=== PATIENT | male | born 1985 | race Caucasian/White ===

== ENCOUNTER 2021-02-21 12:13 | Day surgery (SDC) | payer OTHER ==
[2021-02-20 11:25] VITALS: BMI 27.2
--- NOTE | 2021-02-21 08:24 | P.HPOR ---
History of Present Illness H&P Date: 02/19/21 Chief Complaint: Lt clavicle Fx .T:Title: [facility] Date of :[birth year] R14 Allergies: Age: 35 year Height: 6'5" Weight: 230 lbs BMI: 27.27 kg/m2 Occupation: Unemployed VAS: 4 CHIEF COMPLAINT: Left clavicle, right ankle TREATMENTS: Physical Therapy: No Injections: No Brace: Yes How long was brace worn? Since initial injury on 02/10/2021 (sling) Did it help? yes Home Spine Exercise Program: No Supplements guide: No Health Maintenance Program: No HISTORY: X-Rays: brought xrays from outside facility which were reviewed Trauma or injury: yes , slipped and fell during softball game on 02/10/2021 Work-related: No Location: diffuse Hand dominance: right Activity Modifications: yes DOI: 02/10/2021 DOS: None SUBJECTIVE: Today Mr. Hartman presents for an evaluation of his left clavicle and right ankle. To review, the patient sustained a fall on 02/10/2021, twisting the right ankle and falling on the left shoulder. Immediately after this he presented to the [facility] ER where he was given a shoulder sling and referred here. With this he felt immediate, sharp pain about both areas of concern. After the initial injury he notes that the right ankle pain has waned considerably. He notes that he has been fully weightbearing, regarding the right ankle, since the fall. With this he notes some increase in pain over time with standing or ambulating for extended periods of time. In addition to the right ankle pain he does have moderate swelling about the ankle diffusely, which has waned mildly since the initial injury. This is well controlled with rest and ice. Regarding the left clavicle, he notes that this has been his primary concern since the initial fall. He notes mild tenderness about the left clavicle area with increases with any movement of the left shoulder. Along with the pain he does report mild swelling about the anterior side of the shoulder. Due to this he has been NWB regarding the left upper extremity. He presents to the office wearing the left shoulder sling given to him in the [facility] ER. Patient is taking Ibuprofen PRN for pain management with good effect. Otherwise, he denies any other issues and presents to the office without the use of any ambulatory aides. The patient's past medical history; past surgical history; family history; medicines; allergies and social history have been reviewed and are as stated elsewhere in the chart. 14 points review of systems completed and as stated in HPI, all other systems reviewed are negative. Social History: Reviewed, see appropriate section of the chart for details. P3 Social History: .CE:Clinical Elements:Clinical Elements: Smoking: never a smoker P3 .CE:Clinical Elements:Clinical Elements: Alcohol: none P3 P3 Family History: Reviewed, see appropriate section of the chart for details. P2 Family History: Mother: lung cancer. P2 Father: alive & well. P2 Sibling(s): alive & well. P2 P2 Past Medical History: Reviewed, see appropriate section of the chart for details. P1 PAST MEDICAL HISTORY: P1 P1 THYROID (condition unspecified) Surgical / Procedural History: none P1 P1 Current Medications: Rx: levothyroxine Ref: 0 P1 PHYSICAL EXAM: Patient is alert and oriented 3 appears well-nourished well-hydrated is in no acute distress. They do not appear septic. There is TTP over the lt clavicle with palapble bony fragment and skin tenting over this area. There is no breakthrough. There is ttp about the trapezial region as well. No ttp of the ankle currently. Lower extremities with 5 out of 5 strength in all major muscle groups. Moderate edema diffusely about the right ankle with mild ecchymosis. Limited ROM secondary to pain and swelling. Good sensation about the distal extremities in the right foot. Patient is fully weightbearing and not using any splints/casts. Upper extremities show 5/5 strength in all major muscle groups. Patient presents to the office with the use of a shoulder sling and NWB. Limited ROM secondary to pain. Good sensation in the distal extremities of the left upper extremity and left shoulder. Limited ROM and strength of Lt shoulder secondary to fracture There is FROM that is painless of the b/l UE and LE in all major joints. Limited ROM of Lt shoulder due to fracture. They are intact to light touch sensation in L2 to S1 nerve distribution as well as the C5-T1 distribution DTR 2/4 all upper and lower extremities Patient has palpable dorsalis pedis was posterior tibial pulses. Palpable Rad Ulnar pulses b/l Compartments are soft and compressible. Patient shows a negative Homans Cranial nerves II through XII are grossly intact. RADIOGRAPHS: XRay taken on 02/1821 of left clavicle was reviewed by Dr. Zamarripa and indicates: - Comminuted displaced with segmental fracture 2 cm shortening and 75-100% vertical displacement of mid to distal 1/3 shaft fracture. There are bony fragments that are rotated 90 deg inferiorly. There is no CC or AC separation noted. GH joint visualized is in tact no fractures. XRay taken on 02/1821 of right ankle was reviewed by Dr. Zamarripa and indicates: - No fracture, no malalignment, no talar shift. No bony abnormalities. ASSESSMENT: 1. Left clavicle fracture, closed, displaced, shortened, comminuted with skin tenting 2. Grade 1 right ankle sprain PLAN: All options were reviewed today, we decided the best course of action would be: 1. Based on his clinical findings and the nature of the fracture we did discuss surgical intervention in the form of a left clavicle ORIF. All questions and c oncerns were address and the patient was understanding. We will plan on scheduling this. Wear cast/splint as needed/when up and about, do not sleep or shower in it. Ambulate daily Take pain medications medications as needed and as directed Ice and rest for pain and swelling control. Orthopedic Surgery Risk Review Jayesh Hartman is a 35-year-old [id number] male presenting for evaluation of sudden onset left shoulder and clavicle pain, after a baseball injury where he fell onto his left shoulder. It was my pleasure to have seen and examined Jayesh Hartman. In our visit today we have had a chance to go over subjective complaints, physical examination findings and treatments including the natural course history without intervention and various interventional options. His imaging demonstrates left clavicle fracture comminuted shortened 2 cm with 75-100% displacement. On physical exam,Jayesh Hartman.demonstrates pain with motion of pain with movement of his left shoulder grinding and popping secondary to the fracture, which is NV intact at this time. I have explained to the patient that this fracture needs stabilization. Based on the patients imaging, physical exam, and the rapid progression and disabling nature of her symptoms, at this time I recommend surgery in the form or a: Left clavicle ORIF I discussed the risk and benefits of this procedure at length with Jayesh Gardner And his significant other. Questions were invited and answered, and the patient wishes to proceed as outlined below. Currently, I am recommendin. Left clavicle ORIF 2. Review of surgical risks and benefits as well as an educational packet on the proposed surgical procedure. Risks: All surgical procedures come with inherent risks, including those related to positioning, anesthesia, intraoperative findings, and postoperative complications. It is important to understand that surgery does not come with any guarantee of a successful outcome as complications and adverse events are always possible. The patient was given a handout discussing the surgical procedure and risks associated with the intervention, both of which were discussed with the patient. These risks include but are not limited to the following: - Experiencing same, different or even worse symptoms compared to before surgery. - Requiring further surgery or other forms of treatment presently or at some time in the future . - On an extreme but fortunately relatively rare basis severe complication such as blindness, stroke, heart attack, temporary and/or permanent nerve injury, paralysis, coma, or may occur, sometimes without known explanation. - Surgical complications may include but are not limited to risk of infection, fluid accumulation in the surgical dissection site, including a seroma or hematoma, that requires additional surgery, wound drainage, bleeding, new numbness or weakness, vision changes/loss, spinal fluid leakage, non-healing and/or infected incision, headaches, difficulty or inability to swallow, hoarseness, hemopneumothorax, pneumothorax, injury to nerves, spinal cord, blood vessels, lymphatics or other vital organs (i.e., bowel injury, injury to the great vessels); heterotopic bone formation; complications related to the hardware such as screws, rods, including misplaced hardware, device failure, hardware fracture/breakage, or hardware loosening; retained surgical instrumentations or devices and the need for further surgery. - Medical risks of the planned surgery include but are not limited to generalized Infections to the whole body or local areas outside of the surgical site (sepsis), heart attack, bleeding, anaphylaxis, meningitis, seizure, epilepsy, hearing loss, burn paodaca, laceration of the head or other areas of the body, bruising, hypersensitivity of the skin, bladder over distension; allergic reaction; shoulder injury related to positioning; fat, blood and air clots to other areas of the body like heart, lungs, brain; failure of internal organs such as lungs, kidneys, liver and excessive bleeding. If blood transfusions are necessary, note that transfusions may cause intolerance reactions such as anaphylaxis or other complex reactions. Despite best efforts, the results of surgery might not heal in terms of bone, soft tissues such as skin, fascia, ligaments, and joints. [facility] is an educational center that serves as a training facility for physician assistants, nurses, orthopedic residents and fellows. Residents are physicians who are completing their surgical intensive training following medical school. They assist in the operating room with direct supervision of the attending surgeons. Kinsman are surgeons who have completed their training and eligible for board certification. They have opted for an elective year of more specialized training in their field. They assist in the operating room under the supervision of the attending surgeons. Physician assistants are medically trained surgical providers who function in the outpatient, inpatient, and operating room setting under the direct supervision of the attending surgeon. [facility] has multiple operating rooms with single and overlapping rooms running daily. They currently function under the required guidelines as produced by the [facility] Finance Committee with regards to the overlapping rooms and will continue to comply with changes to this policy as they occur. The requirements include and are complied with as follows: (1) the critical portions of the overlapping rooms will not occur at the same time, (2) the attending physician will be physically present during the critical portions of the procedure and immediately available during the entire case, and (3) a back-up attending is designated should the primary attending not be immediately available. The patient has had a chance to review all the listed information, has been given print outs detailing this information, and has had all his/her questions answered to their satisfaction. It was my pleasure to have seen and examined Jayesh Gardner. In our visit today we have had a chance to go over my understanding of our patient's current condition, the natural course history without intervention and various interventional options. Questions were invited and answered, and the patient wishes to proceed as outlined above. I have seen and examined the patient for 25 minutes and we have spent more than 50% of the time in repeat and detailed counseling about the patient's condition, its natural course history with out and as much as can be predicted with surgery and re-review of various surgical treatment options. In conclusion, Jayesh Gardner And his significant other requested we proceed with the above suggested surgery and are willing to accept risks and limitations of the suggested surgery as nature of the disease process and our best attempts at treatment for the condition. Thank you again for allowing us to be part of your patient's care. Please don't hesitate to contact me if you have any further questions. Signed and authenticated by: Aj Ortez [facility] [address] [place] [address] Past Medical History Past Medical History: Thyroid Disorder History of Any Multi-Drug Resistant Organisms: None Reported Past Surgical History: No Surgical Hx Reported Past Anesthesia/Blood Transfusion Reactions: No Reported Reaction Additional Past Anesthesia/Blood Transfusion Reaction / Comment(s): Has never had general anesthesia. Past Psychological History: Anxiety Smoking Status: Never smoker Past Alcohol Use History: Rare Past Drug Use History: None Reported - Past Family History Mother Family Medical History: Cancer, Deep Vein Thrombosis (DVT) Additional Family Medical History / Comment(s): Lung Cancer. Medications and Allergies Home Medications Medication Instructions Recorded Confirmed Type Cholecalciferol [Vitamin D3 (25 25 mcg PO DAILY 02/20/21 02/20/21 History Mcg = 1000 Iu)] Levothyroxine Sodium 25 mcg PO QAM 02/20/21 02/20/21 History Allergies Allergy/AdvReac Type Severity Reaction Status Date / Time No Known Allergies Allergy Verified 02/20/21 11:32 Physical Examination Osteopathic Statement: *. No significant issues noted on an osteopathic structural exam other than those noted in the History and Physical/Consult.
[~2021-02-21 12:13] MED LIST: DEXAMETHASONE SOD PHOSPHATE 4 MG/ML 1 ML VIAL IV ONE; HYDROmorphone 0.5 MG/0.5 ML SYRINGE IVP PRN; LACTATED RINGERS 1,000 ML IV SCH; LIDOCAINE 1% (10MG/ML) FOR IV START INTRADERMA PRN; ONDANSETRON 4 MG/2 ML VIAL IVP ONE; SCOPOLAMINE 1.5MG/72HR PATCH TRANSDERM ONE
[2021-02-21] MEDS ORDERED: ONDANSETRON 4 MG/2 ML VIAL ONE ×3 (13:00→22:32)
[2021-02-21 13:24] LABS: Basophils # (A) 0.1 k/uL (0-0.2); Basophils % (A) 1 %; Eosinophils # (A) 0.3 k/uL (0-0.7); Eosinophils % (A) 3 %; HCT 48.6 % (39.0-53.0); HGB 16.9 gm/dL (13.0-17.5); Lymphocytes # (A) 2.5 k/uL (1.0-4.8); Lymphocytes % (A) 22 %; MCH 31.6 pg (25.0-35.0); MCHC 34.8 g/dL (31.0-37.0); MCV 90.8 fL (80.0-100.0); Mean Platelet Volume 7.6; Monocytes # (A) 0.7 k/uL (0-1.0); Monocytes % (A) 6 %; Neutrophils # (A) 7.5 k/uL (1.3-7.7); Neutrophils % (A) 67 %; Platelet Count 292 k/uL (150-450); RBC 5.35 m/uL (4.30-5.90); RDW 12.7 % (11.5-15.5); WBC 11.2 k/uL (3.8-10.6)
[2021-02-21 13:32] LABS: ALT 19 U/L (4-49); AST 24 U/L (17-59); African American GFR (CKD) >90 (>60 ml/min/1.73 sqM); Albumin 5.2 g/dL (3.5-5.0); Alkaline Phosphatase 70 U/L (38-126); Anion Gap 13 mmol/L; Blood Urea Nitrogen 15 mg/dL (9-20); Calcium 10.5 mg/dL (8.4-10.2); Carbon Dioxide 24 mmol/L (22-30); Chloride 103 mmol/L (98-107); Glucose 103 mg/dL (74-99); Non-African American GFR(CKD) >90 (>60 ml/min/1.73 sqM); Potassium 4.2 mmol/L (3.5-5.1); Sodium 140 mmol/L (137-145); Total Bilirubin 0.8 mg/dL (0.2-1.3); Total Protein 8.8 g/dL (6.3-8.2)
[2021-02-21] MEDS ORDERED: MIDAZOLAM 2 MG/2 ML VIAL IVP ONE ×2 (13:35→13:50)
--- NOTE | 2021-02-21 14:12 | P.ANPRN ---
Procedure Note - Anesthesia - Nerve Block Performed Left Interscalene Single Time Out Performed: Yes Date of Procedure: 02/21/21 Procedure Start Time: 13:57 Procedure Stop Time: 14:04 Location of Patient: PreOp Indication: Acute Post-Operative Pain, Requested by Surgeon Sedation Type: Sedate with meaningful contact maintained Preparation: Sterile Prep, Sterile Dressing Position: Sitting Catheter: None Needle Types: On-Q Needle Gauge: 20 Ultrasound used to visualize needle placement: Yes Ultrasound used to observe medication spread: Yes Injectate: 0.5% Ropivacaine (see comment for volume) (20 ml) Blood Aspirated: No Pain Paresthesia on Injection Noted: No Resistance on Injection: Normal Image Stored and Saved: Yes Events: Uneventful and Well Tolerated Left Other (see comment) Single Time Out Performed: Yes (Superficial cervical plexus block) Date of Procedure: 02/21/21 Procedure Start Time: 13:50 Procedure Stop Time: 13:55 Location of Patient: PreOp Indication: Acute Post-Operative Pain, Requested by Surgeon Sedation Type: Sedate with meaningful contact maintained Preparation: Sterile Prep, Sterile Dressing Position: Supine Catheter: None Needle Types: Pajunk Needle Gauge: 20 Ultrasound used to visualize needle placement: Yes Ultrasound used to observe medication spread: Yes Injectate: 0.5% Ropivacaine (see comment for volume) (20 ml) Blood Aspirated: No Pain Paresthesia on Injection Noted: No Resistance on Injection: Normal Image Stored and Saved: Yes Events: Uneventful and Well Tolerated
[2021-02-21] MEDS ORDERED: SUCCINYLCHOLINE CHLORIDE 100 MG/5 ML SYR IV ONE (16:18)
[2021-02-21] MEDS ORDERED: LIDOCAINE 1% INJ 10MG/ML (20 ML MDV) ONE (16:18)
[2021-02-21] MEDS ORDERED: fentaNYL (PF) 50 MCG/ML 2 ML AMP ONE (16:18)
[2021-02-21] MEDS ORDERED: HYDROmorphone (PF) 1 MG/ML ONE (16:18)
[2021-02-21] MEDS ORDERED: GLYCOPYRROLATE 0.2 MG/ML 2 ML VIAL ONE (16:18)
[2021-02-21] MEDS ORDERED: MIDAZOLAM 2 MG/2 ML VIAL ONE (16:18)
[2021-02-21] MEDS ORDERED: ROPIVACAINE 5 MG/ML 30 ML VIAL ONE (16:18)
[2021-02-21] MEDS ORDERED: NEOSTIGMINE 1 MG/ML 10 ML VIAL ONE (16:18)
[2021-02-21] MEDS ORDERED: ROCURONIUM 10 MG/ML (5 ML VIAL) IV ONE (16:18)
[2021-02-21] MEDS ORDERED: PROPOFOL 10 MG/ML 20 ML VIAL IV ONE (16:18)
[2021-02-21] MEDS ORDERED: LACTATED RINGERS 1,000 ML IV ONE (18:07)
--- NOTE | 2021-02-21 19:17 | P.PN ---
Progress Note - Text Progress Note Date: 02/21/21 Brief Post Op: Surgeon: Rafat Assist: Boris Pre op dx; left clavicle fracture shortened comminuted displaced Post op dx: Same Procedure: Left clavicle ORIF Anesthesia: GETA EBL: 25 Fluids: 700 UO: None Dispo: Stable to PACU Post op Plan: Nonweightbearing left upper extremity in sling Encourage ambulation IS 10x/hr Teds/SCDs Pain control DC home when stable
--- NOTE | 2021-02-21 19:32 | P.OP ---
Date of Procedure: 02/21/21 Preoperative Diagnosis: 1. Lt clavicle fracture displaced, comminuted, shortened with skin tenting 2. s/p baseball injury Postoperative Diagnosis: 1. Lt clavicle fracture displaced, comminuted, shortened with skin tenting 2. s/p baseball injury Procedure(s) Performed: 1. Open treatment clavicle fracture Lt with internal fixation [68320] 2. Partial Excision bone clavicle [50669] 3. Interpretation of intraoperative flouroscopic images <1 hr [64023] Implants: S&N 3.5 LCP plate DBM Anesthesia: GETA Surgeon: Aj Douglass Engraved Roller Inspector #1: James Mercado (Was present and necessary for the whole case due to complexity of the case) Estimated Blood Loss (ml): 25 IV fluids (ml): 700 Urine output (ml): 0 Pathology: none sent Condition: stable Disposition: PACU Indications for Procedure: 35 yo RHD male presented to the office after an injury at softball. He tripped and fell on a base and fell on his left side. He had ankle pain and shoulder pain. He came to ED for eval which showed a Lt comminuted clavicle fracture and he presented to the office for follow up. He complained of exquisite pain in the left shoulder and left clavicle region with the sensation of clicking and shifting of his clavicle. He is very active and uses his arms a lot. He denies any numbness or tingling there is no other changes. Discussed different options for him surgical versus nonsurgical. We discussed all the options risks benefits and outcomes of the procedure. After weighing his risks benefits and the different options the patient due to his activity level the displacement comminution and shortening of the clavicle fracture opted for surgical treatment. Description of Procedure: The patient was seen and examined in the preoperative area. All preoperative protocols were followed. Informed consent was obtained risks and benefits of the procedure were discussed at length. Risks including bleeding infection damage to the surrounding tissue and risk of reoperation were discussed with the patient. Risk of anesthesia up to and including was a discussed with the patient. These are outlined in the risk reviewed. They were willing to accept these risks and all of the risks of surgery. The patient was given a weight- based dose of antibiotics in the form of 2 g Ancef IVPB. The patient was seen and evaluated by the anesthesia team who deemed them fit for surgery. The site was marked, the patient was willing to proceed with the procedure. The patient was transferred to the operative suite by the Department of anesthesia. There were then drifted off to sleep by the department of anesthesia and GETA anesthesia was used. Once adequate anesthesia had been obtained the patient was carefully transferred to the operative bed. All bony prominences were padded accordingly. SCDs were placed on the nonoperative lower extremities. Arms were well padded. The patient was placed on a flat Jhonatan table supine with the head of the bed elevated. A bump was placed under his left shoulder. He was secured to the table safety straps. All bony prominences were padded accordingly and a pillow was placed under his knees. 10:15 0 placed around the operative field. Preoperative briefing was done with the operative team and everyone was ready for the procedure to start. The patients left arm was then prepped and draped in the normal sterile fashion. Timeout was then performed and all parties in agreement with the procedure to be performed. Localization was performed with fluoroscopic imaging. Once this was accomplished a transverse incision was made over the supraclavicular region. Blunt dissection taken down to the clavipectoral fascia which was split in line with the incision. We then identified the periosteum and this was opened. We then used a wooden handled elevator to clear the periosteum around the fracture fragments proximally and distally. There were 2 large comminuted pieces there is an anterior comminuted piece which was split longitudinally of the distal portion and piece inferiorly. This was reduced into position after being cleaned with a curet and irrigated. We then reduced the main fragments together. We used a lobster clamp to hold these together. We then identified a devitalized fragment which was rotated 90 and inferior and posterior to the clavicle. It had a intimate relationship with the subclavian artery. It was carefully cleaned and removed from this area as it was abutting the subclavian artery. We performed excision of this piece as it was essentially elisabet lized and was causing pressure on the artery. Once the fragments were adequately reduced a plate was selected and placed superiorly. We pinned the plate proximally which allowed for reduction of this fragment we then lobster clamps the distal fragment to the plate and pinned it in position AP and lateral fluoroscopy were taken which confirmed good placement of the plate as well as reduction of fracture. We then drilled and placed screws on both the proximal and distal portion to rule out the plate to hold reduction we then removed the pins. We are then able to remove the lobster claw as well. We then were able to place the remainder of the screws to allow for 6 cortices proximally and distally. The arm was then taken through a range of motion and the fracture was moving as 1 piece and was stable final AP and lateral fluoroscopy was taken which confirmed good reduction of fracture as well as good plate placement. We then thoroughly irrigated the wound with normal sterile saline. We then placed the excised piece which was then used for bone graft as well as DBM within the fracture voids. To graft the fracture. The periosteum and clavipectoral fascia were then closed with 0 Vicryl in a running fashion. Then closed the subcu region with 2-0 Vicryl in simple fashion. Subcuticular region was closed with a running 30 strata fix Monocryl suture. The wound edges approximated very well. We then cleaned and placed XO Rodolfo tape and glue over the incision. We allowed this to dry and then dressed it sterilely with Telfa and Tegaderms. The patient was placed in a simple sling on the left-hand side. The patient was then transferred back to their hospital bed. There were awakened by department of anesthesia having tolerated the procedure very well with no complications. The patient was then transported to the postoperative care unit in stable condition.
[2021-02-21] MEDS ORDERED: ONDANSETRON 4 MG/2 ML VIAL IVP ONE (19:42)
[2021-02-21 21:49] VITALS: BP 151/83; PULSE 97; RESP 18; TEMP 97.5
--- NOTE | 2021-02-22 12:08 | XR ---
EXAMINATION TYPE: XR clavicle LT, FL guidance operating room DATE OF EXAM: 02/21/2021 COMPARISON: NONE HISTORY: Left clavicle fracture, open reduction internal fixation Fluoroscopy support supplied to the referring clinician. See dictated report from orthopedic surgery , 8 intraoperative images, 45 seconds fluoroscopy time
== END 2021-02-21 23:43 | disposition home or self-care (01) ==
LOC: OR 12:13 → 6NMEDSUR 17:14 → OR 23:43
PROVIDERS: ATTEND Orthopaedic Surgery
DX: S42.002A Fracture of unspecified part of left clavicle, initial encounter for closed fracture (principal); W01.0XXA Fall on same level from slipping, tripping and stumbling without subsequent striking against object, initial encounter; E07.9 Disorder of thyroid, unspecified; Z79.890 Hormone replacement therapy
CPT/HCPCS: 23515; 64415; 76942; 80053; 85025; 73000; C1713 ×2; J2250; J1100; J2710; J0690; J2405; J2001; J3010; J1170; J2795; J0330; J2704